=== PATIENT | female | born 1935 | race Caucasian/White ===

== ENCOUNTER 2017-08-13 05:40 | Emergency (ER) | payer OTHER ==
[~2017-08-13] VITALS: Ht 149.9 cm; Wt 63.7 kg
[~2017-08-13 05:40] MED LIST: ASPIR-LOW81 MG PO; BETHANECHOL CHL25 MG PO; DICYCLOMINE HCL20 MG PO; DIOVAN80 MG PO; FLEXERIL5 MG PO; K-DUR20 MEQ PO; K-LOR,KLOR-CON20 MEQ PO; KEFLEX250 MG PO; KENALOG,ARISTOC80 G1 TP; KLOR-CON M2020 MEQ PO; KLOR-CON-EF 2525 MEQ PO; LASIX40 MG PO; LEVAQUIN750 MG PO; LISINOPRIL-HCT1 EAC3 PO; LISINOPRIL20 MG PO; LOPRESSOR100 MG PO; METAXALONE800 MG PO; METOPROLOL SUC100 MG PO; METOPROLOL TAR100 MG PO; MOTRIN800 MG PO; NITROGLYCERIN0.4 MG SL; NITROSTAT0.4 MG SL; PANTOPRAZOLE SO40 MG PO; PLENDIL10 MG PO; POLYETHYLENE GL17 GM PO; SENNA PLUS TAB1 EACH PO; SIMVASTATIN40 MG PO; TAMSULOSIN HCL0.4 MG PO; TIZANIDINE HCL2 M1 PO; TIZANIDINE HCL2 MG PO; TOPROL XL100 MG PO; TRAMADOL HCL50 MG PO; TRICOR145 MG PO; TYLENOL REGULA325 MG PO; ULTRAM50 MG PO; URECHOLINE25 MG PO; VYTORIN 10/11 TABLET PO; ZANTAC150 MG PO; ZETIA10 MG PO; ZOCOR40 MG PO
[2017-08-13 09:22] VITALS: BP 168/88
== END 2017-08-13 09:23 | disposition home or self-care (01) ==
LOC: EME 05:40
DX: S00.83XA Contusion of other part of head, initial encounter (principal); S80.02XA Contusion of left knee, initial encounter; W06.XXXA Fall from bed, initial encounter; I10 Essential (primary) hypertension; E78.5 Hyperlipidemia, unspecified; F32.9 Major depressive disorder, single episode, unspecified; Z87.891 Personal history of nicotine dependence; Z90.49 Acquired absence of other specified parts of digestive tract; Z79.82 Long term (current) use of aspirin; Z88.2 Allergy status to sulfonamides; Z88.5 Allergy status to narcotic agent
CPT/HCPCS: 70450; 73564; 99281; 99284

== ENCOUNTER 2017-10-16 16:39 | Emergency (ER) | payer OTHER ==
[~2017-10-16] VITALS: Ht 149.9 cm; Wt 67.0 kg
[2017-10-16 18:03] LABS: HEMATOCRIT 39.3 % (36.0-46.0); HEMOGLOBIN 13.1 G/DL (11.9-15.5); MCH 31.5 PG (29.0-34.0); MCHC 33.3 G/DL (30.0-36.0); MCV 94.5 FL (83-99); PLATELET COUNT 296 K/uL (156-360); RBC DIS.WIDTH-CV 12.6 % (11.8-14.6); RBC DIS.WIDTH-SD 43.9 % (39-53); RED BLOOD COUNT 4.16 M/uL (3.80-5.20); WHITE BLOOD COUNT 11.1 K/uL (4.1-10.2)
[2017-10-16 18:13] LABS: CHLORIDE 97 mEq/L (99-109); POTASSIUM 4.9 mEq/L (3.7-5.4); SODIUM 132 mEq/L (136-147)
[2017-10-16 18:14] LABS: GLUCOSE 119 mg/dL (70-99)
[2017-10-16 18:19] LABS: CREATININE 1.5 mg/dL (0.6-1.3); GFR ESTIMATE (CALCULATED) 35 mL/min/; UREA NITROGEN (BUN) 43 mg/dL (9-23)
[2017-10-16 18:45] LABS: APPEARANCE CLOUDY ((CLEAR)); BILIRUBIN NEGATIVE; BLOOD SMALL; COLOR YELLOW ((YELLOW)); GLUCOSE (STRIP) NEGATIVE; KETONES NEGATIVE; LEUKOCYTES LARGE; NITRITE NEGATIVE; PROTEIN (STRIP) NEGATIVE; SPECIFIC GRAVITY 1.009 (1.000-1.030); UROBILINOGEN 0.2 MG/DL (0.2-1.0)
[2017-10-16 19:39] LABS: TROP-I INTERPRETATION NEGATIVE; TROPONIN-I < 0.01 ng/mL (0.0-0.30)
[2017-10-16 19:43] LABS: BACTERIA 2+ /HPF; EPITHELIAL CELLS 2+ /HPF; HYALINE CASTS 0-5 /LPF; MUCUS RARE /LPF; UCUL ADDED? YES; WHITE BLOOD CELLS 15-20 /HPF (0-5)
[2017-10-16 22:16] LABS: CHLORIDE 100 mEq/L (99-109); POTASSIUM 4.2 mEq/L (3.7-5.4); SODIUM 134 mEq/L (136-147)
[2017-10-16 22:18] LABS: GLUCOSE 88 mg/dL (70-99)
[2017-10-16 22:22] LABS: CREATININE 1.2 mg/dL (0.6-1.3); GFR ESTIMATE (CALCULATED) 46 mL/min/
[2017-10-16 22:23] LABS: UREA NITROGEN (BUN) 38 mg/dL (9-23)
[2017-10-16] MEDS ORDERED: MECLIZINE HCL25 MG PO (22:56)
[2017-10-16] MEDS ORDERED: KEFLEX500 MG PO (22:56)
[2017-10-16 23:05] VITALS: BP 162/100
== END 2017-10-16 23:05 | disposition home or self-care (01) ==
LOC: RME 16:39 → EME 16:39 → RME 23:05
PROVIDERS: Physician Assistant
DX: R42 Dizziness and giddiness (principal); I12.9 Hypertensive chronic kidney disease with stage 1 through stage 4 chronic kidney disease, or unspecified chronic kidney disease; N18.9 Chronic kidney disease, unspecified; N17.9 Acute kidney failure, unspecified; E86.0 Dehydration; E78.5 Hyperlipidemia, unspecified; Z88.2 Allergy status to sulfonamides; Z87.891 Personal history of nicotine dependence
CPT/HCPCS: 70450; 71046; 80048; 80048 91; 81003; 84484; 85027; 87086; 93005; 99281; 99284; J0696; J7030